=== PATIENT | female | born 2000 | race Hispanic/Latino ===

== ENCOUNTER 2024-04-02 02:18 | Day surgery (SDC) | payer SELFPAY ==
[2024-04-02 02:42] VITALS: BMI 29.0
[2024-04-02] MEDS ORDERED: hydrALAZINE 20 MG/ML VIAL SLOW IVP PRN (03:08)
[2024-04-02] MEDS: Acetaminophen 500 MG TAB PO SCH (03:23)
== END 2024-04-02 06:20 | disposition home or self-care (01) ==
LOC: CSHLD/OP 02:18
PROVIDERS: ATTEND Obstetrics & Gynecology
DX: O23.43 Unspecified infection of urinary tract in pregnancy, third trimester (principal); N39.0 Urinary tract infection, site not specified; O99.891 Other specified diseases and conditions complicating pregnancy; R10.9 Unspecified abdominal pain; M54.50 Low back pain, unspecified; O34.211 Maternal care for low transverse scar from previous cesarean delivery; O00.01 Abdominal pregnancy with intrauterine pregnancy; Z62.0 Inadequate parental supervision and control; Z79.899 Other long term (current) drug therapy; Z3A.29 29 weeks gestation of pregnancy
CPT/HCPCS: 76815